=== PATIENT | female | born 1995 | race Caucasian/White ===

== ENCOUNTER 2017-02-27 08:06 | Outpatient (CLI) | payer OTHER ==
--- NOTE | 2017-02-27 11:02 | ULT ---
RIGHT UPPER QUADRANT ULTRASOUND: Date: 02/27/17 HISTORY: Abdominal pain after eating. COMPARISON: None. FINDINGS: The visualized portion of the pancreas is unremarkable. Hepatic echotexture is normal. There is exten sive cholelithiasis. Common bile duct measures less than 2.0 mm, normal. The gallbladder wall thickness is 3.0 mm. The right kidney measures 9.8 x 3.3 x 5.3 cm, without mass, hydronephrosis, or abnormal calcification s. IMPRESSION: Cholelithiasis with gallbladder wall thickness at the upper limits of normal. Surgical consultation a dvised. Symptomatic cholelithiasis is likely diagnosis. No significant distention of the gallbladder or pericholecystic fluid to suggest acute cholecystitis. POS: OFF
== END 2017-02-27 08:07 | disposition home or self-care (01) ==
LOC: MADULT 08:06
PROVIDERS: ATTEND Family Medicine
DX: R10.11 Right upper quadrant pain (principal); K80.20 Calculus of gallbladder without cholecystitis without obstruction
CPT/HCPCS: 76705